=== PATIENT | female | born 1975 | race Caucasian/White ===

== ENCOUNTER 2017-12-19 11:12 | Emergency (ER) | payer MEDICARE ==
[2017-12-19 11:21] VITALS: BP 120/65
[2017-12-19 12:07] LABS: Alanine Aminotransferase 11 units/L (7-56); Albumin 4.3 g/dL (3.9-5); BUN/Creatinine Ratio 18; Blood Urea Nitrogen 9 mg/dL (7-17); Calcium 9.5 mg/dL (8.4-10.2); Hemolysis Index 7; Lipase 20 units/L (13-60)
[2017-12-19 12:09] LABS: Basophils # (Auto) 0.1 K/mm3 (0.0-0.1); Basophils % (Auto) 0.5 % (0.0-1.8); Eosinophils % (Auto) 0.2 % (0.0-4.3); Hematocrit 45.3 % (30.3-42.9); Hemoglobin 15.1 gm/dl (10.1-14.3); Lymphocytes # (Auto) 2.1 K/mm3 (1.2-5.4); Lymphocytes % (Auto) 17.1 % (13.4-35.0); Mean Corpuscular HGB Conc 33 % (30-34); Mean Corpuscular Hemoglobin 30 pg (28-32); Mean Corpuscular Volume 91 fl (79-97); Monocytes # (Auto) 0.5 K/mm3 (0.0-0.8); Monocytes % (Auto) 3.8 % (0.0-7.3); Platelet Count 290 K/mm3 (140-440); Red Cell Distribution Width 13.2 % (13.2-15.2)
[2017-12-19] MEDS ORDERED: ZOFRAN ODT PO ONE (12:28)
[2017-12-19] MEDS ORDERED: ULTRAM PO ONE (12:29)
--- NOTE | 2017-12-19 12:30 | Emergency Department Report ---
ED General Adult HPI - General Chief complaint: Nausea/Vomiting/Diarrhea Stated complaint: THROWING UP HURT Time Seen by Provider: 12/19/17 12:25 Source: patient Mode of arrival: Ambulatory Limitations: No Limitations - History of Present Illness Initial comments: Ms. Vargas is a 42 yo female with nausea vomiting diarrhea. She ate barbecue 2 days ago. Possible food poisoning. Positive chills. History of colon cancer now remission. She feels dehydrated. Diffuse body aches. Pain in abdomen and pain in the back. -: days(s) (2) Location: back, abdomen Severity scale (0 -10): 6 Quality: other (achy crampy) Consistency: constant Improves with: none Worsens with: none Associated Symptoms: loss of appetite, nausea/vomiting, other (chills) - Related Data Previous Rx's Medication Instructions Recorded Last Taken Type Ciprofloxacin HCl [Ciprofloxacin 500 mg PO BID 3 Days #6 tablet 12/19/17 Unknown Rx TAB] HYDROcodone/APAP 5-325 [[place] 1 each PO Q6HR PRN #10 tablet 12/19/17 Unknown Rx 5/325] Promethazine [Phenergan TAB] 25 mg PO Q6HR PRN #10 tab 12/19/17 Unknown Rx Allergies Allergy/AdvReac Type Severity Reaction Status Date / Time metoclopramide [From Reglan] Allergy Unknown Verified 12/19/17 11:22 tramadol [From Ultram] Allergy Unknown Verified 12/19/17 11:22 ED Review of Systems ROS: Stated complaint: THROWING UP HURT Other details as noted in HPI Comment: All other systems reviewed and negative Constitutional: chills, malaise ED Past Medical Hx - Past Medical History Additional medical history: colon ca 2017 with radiation/chemo - Surgical History Additional Surgical History: total colectomy,partial hysterectomy - Social History Smoking Status: Never Smoker Substance Use Type: None - Medications Home Medications: Home Medications Medication Instructions Recorded Confirmed Last Taken Type Ciprofloxacin HCl [Ciprofloxacin 500 mg PO BID 3 Days #6 tablet 12/19/17 Unknown Rx TAB] HYDROcodone/APAP 5-325 [[place] 1 each PO Q6HR PRN #10 tablet 12/19/17 Unknown Rx 5/325] Promethazine [Phenergan TAB] 25 mg PO Q6HR PRN #10 tab 12/19/17 Unknown Rx ED Physical Exam - General Limitations: No Limitations General appearance: alert, in no apparent distress - Head Head exam: Present: atraumatic, normocephalic - Eye Eye exam: Present: normal appearance - ENT ENT exam: Present: mucous membranes moist - Neck Neck exam: Present: normal inspection - Respiratory Respiratory exam: Present: normal lung sounds bilaterally. Absent: respiratory distress, wheezes, rales, rhonchi - Cardiovascular Cardiovascular Exam: Present: regular rate, normal rhythm, normal heart sounds. Absent: systolic murmur, diastolic murmur, rubs, gallop - GI/Abdominal GI/Abdominal exam: Present: soft, normal bowel sounds. Absent: distended, tenderness, guarding, rebound - Extremities Exam Extremities exam: Present: normal inspection - Back Exam Back exam: Present: normal inspection - Neurological Exam Neurological exam: Present: alert, oriented X3 - Psychiatric Psychiatric exam: Present: normal affect, normal mood - Skin Skin exam: Present: warm, dry, intact, normal color. Absent: rash ED Course Vital Signs 12/19/17 11:17 Temperature 98.5 F Pulse Rate 81 Respiratory 18 Rate Blood Pressure 120/65 O2 Sat by Pulse 100 Oximetry ED Medical Decision Making - Lab Data Result diagrams: 12/19/17 11:40 12/19/17 11:40 Laboratory Results - last 24 hr 12/19/17 12/19/17 11:40 11:40 WBC 12.1 H RBC 5.00 Hgb 15.1 H Hct 45.3 H MCV 91 MCH 30 MCHC 33 RDW 13.2 Plt Count 290 Lymph % (Auto) 17.1 [place] % (Auto) 3.8 Eos % (Auto) 0.2 Baso % (Auto) 0.5 Lymph # 2.1 [place] # 0.5 Eos # 0.0 Baso # 0.1 Seg Neutrophils % 78.4 H Seg Neutrophils # 9.5 H Sodium 137 Potassium 3.9 Chloride 98.9 Carbon Dioxide 23 Anion Gap 19 BUN 9 Creatinine 0.5 L Estimated GFR > 60 BUN/Creatinine Ratio 18 Glucose 116 H Calcium 9.5 Total Bilirubin 0.40 AST 17 ALT 11 Alkaline Phosphatase 73 Total Protein 7.7 Albumin 4.3 Albumin/Globulin Ratio 1.3 Lipase 20 Vital Signs - 24 hr 12/19/17 11:17 Temperature 98.5 F Pulse Rate 81 Respiratory 18 Rate Blood Pressure 120/65 O2 Sat by Pulse 100 Oximetry - Medical Decision Making Ms. Vargas presents with likely food poisoning. I reviewed labs with slightly elevated white count of 12,000. Normal vital signs. No evidence of metabolic derangement or BERT. IV fluid therapy is not indicated at this time. I highly recommended oral rehydration. Patient received hydrocodone and Zofran and ED. I prescribed promethazine and ciprofloxacin. Critical care attestation.: If time is entered above; I have spent that time in minutes in the direct care of this critically ill patient, excluding procedure time. ED Disposition Clinical Impression: Gastroenteritis Disposition: [id number] TO HOME OR SELFCARE Is pt being admited?: No Does the pt Need Aspirin: No Condition: Stable Instructions: Food Poisoning (ED), Gastroenteritis (ED) Prescriptions: Ciprofloxacin HCl [Ciprofloxacin TAB] 500 mg PO BID 3 Days #6 tablet HYDROcodone/APAP 5-325 [[place] 5/325] 1 each PO Q6HR PRN #10 tablet PRN Reason: Pain Promethazine [Phenergan TAB] 25 mg PO Q6HR PRN #10 tab PRN Reason: Nausea Referrals: [facility] [Outside] - 3-5 Days PRIMARY CARE, [Primary Care Provider] - 3-5 Days Time of Disposition: 12:37
[2017-12-19] MEDS ORDERED: NORCO 5/325 PO ONE (12:31)
[2017-12-19 12:59] LABS: Bilirubin,Urine NEG (Negative); Blood,Urine NEG (Negative); Color,Urine Yellow (Yellow); Mucus,Urine FEW /HPF; Urobilinogen,Urine < 2.0 mg/dL (<2.0)
== END 2017-12-19 12:47 | disposition home or self-care (01) ==
LOC: ED 11:12
DX: K52.9 Noninfective gastroenteritis and colitis, unspecified (principal); Z90.711 Acquired absence of uterus with remaining cervical stump; Z90.49 Acquired absence of other specified parts of digestive tract; Z88.8 Allergy status to other drugs, medicaments and biological substances
CPT/HCPCS: 36415; 80053; 81001; 83690; 85025; 99283; Q0162